=== PATIENT | male | born 1970 | race Caucasian/White ===

== ENCOUNTER 2016-10-13 08:13 | Emergency (ER) | payer SELFPAY ==
[~2016-10-13] VITALS: Wt 75.0 kg
[~2016-10-13 08:13] MED LIST: ACET500T98 PO
[2016-10-13] MEDS ORDERED: BEN25 PO (08:32)
[2016-10-13] MEDS ORDERED: HC30CR25 TOP (08:33)
[2016-10-13] MEDS ORDERED: METHYLPREDNISOLONE 125 MG INJ IM ONE (09:00)
--- NOTE | 2016-10-13 09:02 | ERD ---
ER Documentation Chief Complaint Date/Time DATE: 10/13/16 TIME: 08:59 Chief Complaint allergic reaction with facial swelling and rash. no sob or stridor HPI Patient is a 46-year-old male who presents to the ED with bilateral arm itchiness and facial itchiness and slight swelling since yesterday. He states that he had 3 "blood pork tacos." And developed itchiness and swelling soon afterwards. He states that the itchiness has gone and the swelling has decreased but he states that he still has swelling on his face. He denies fever , chills. Denies shortness of breath, stridor, difficulty breathing, difficulty speaking. Denies chest pain, shortness of breath. Denies tongue swelling or lip swelling. Denies headache, dizziness, blurry vision, neck pain or stiffness. Denies abdominal pain. No other complaints. Has not taken any medication for his symptoms. ROS All systems reviewed and are negative except as per history of present illness. Medications Home Meds Active Scripts Hydrocortisone* Topical (Hydrocortisone* Topical) 2.5%-28.3 Gm Cream..g., 1 APPLIC TOP BID, #1 TUB Prov:DARION MILLER PA-C 10/13/16 Diphenhydramine Hcl* (Benadryl*) 25 Mg Cap, 25 MG PO Q6, #30 CAP Prov:DARION MILLER PA-C 10/13/16 Acetaminophen (Tylenol) 500 Mg Tab, 500 MG PO Q8, #10 TAB Prov:REGINA BRICEÑO NP 08/21/15 Allergies Allergies: Coded Allergies: No Known Allergy (Unverified , 10/13/16) PMhx/Soc Medical and Surgical Hx: pt denies Medical Hx, pt denies Surgical Hx History of Surgery: No Anesthesia Reaction: No Hx Neurological Disorder: No Hx Respiratory Disorders: No Hx Cardiac Disorders: No Hx Psychiatric Problems: No Hx Miscellaneous Medical Probl: No Hx Alcohol Use: Yes (3 beers per day) Hx Substance Use: No Hx Tobacco Use: No Smoking Status: Never smoker Physical Exam Vitals Vital Signs Date Time Temp Pulse Resp B/P Pulse Ox O2 Delivery O2 Flow Rate FiO2 10/13/16 08:17 98.5 92 21 130/75 98 Physical Exam GENERAL: Well-developed, well-nourished male. Appears in no acute distress. HEAD: Normocephalic, atraumatic. Slight bilateral face swelling, no induration , no fluctuance, no warmth, no erythema no streaking EYES: Pupils are equally reactive bilaterally. EOMs grossly intact. No conjunctival erythema. ENT: Moist mucous membranes. No uvula deviation. No kissing tonsils. No exudates. No tongue swelling, no angioedema NECK: Supple. No lymphadenopathy or thyromegaly. No meningismus. negative kernig. negative brudinski. LUNG: Clear to auscultation bilaterally. No rhonchi, wheezing, rales or coarse breath sounds. No stridor, speaking in full sentences HEART: Regular rate and rhythm. No murmurs, rubs or gallops. NEUROLOGIC: Alert and oriented. Moving all four extremities. 5/5 strength in all extremities. Normal speech. Steady gait. SKIN: Normal color. Warm and dry. No rashes or lesions. Capillary refill < 2 seconds Results 24 hrs Current Medications Medications (Trade) Dose Ordered Sig/Ronak Route PRN Reason Start Time Stop Time Status Last Admin Dose Admin Methylprednisolone Sodium Succinate (Solu-Medrol) 125 mg ONCE ONCE IM 10/13/16 09:00 10/13/16 09:01 10/13/16 08:46 Procedures/MDM ER COURSE: I kept the patient and/or family informed of laboratory and diagnostic imaging results throughout the emergency room course. MEDICATIONS: 125 mg Solu-Medrol IM. Tolerated medication well with no adverse reaction. MEDICAL DECISION MAKING: This is a 46-year-old male who presents with rash. Vital signs were reviewed. Patient is afebrile. Patient is not hypoxic. Patient is not toxic or ill- appearing. Patient has likely allergic reaction. Patient does not show signs of angioedema, tongue swelling, shortness of breath or stridor. Patient is speaking in full sentences and does not show signs of respiratory distress. Low suspicion for necrotizing fasciitis, SJS, toxic epidermal necrolysis, Kawasaki, erythema multiforme, gangrene, scarlet fever, meningococcemia, sepsis , anaphylaxis, sepsis, deep space infection, or foreign body. Low suspicion for pneumonia, PE, pneumothorax, ACS, epiglottitis, obstruction, TB, pertussis, meningitis, sepsis, anaphylaxis, angioedema. DISCHARGE: At this time, patient is stable for discharge and outpatient management with no new complaints during the ER course. Patient was sent home with Benadryl and hydrocortisone cream and a note for work.. Patient will be discharged home with instructions to recheck for new or worsening symptoms such as fever, nausea, weakness, LOC and to follow up with primary care in the next 1-2 days. Patient was advised to return to the ER for any new or worsening symptoms. Plan was discussed and patient and/or family understands and agrees. Home instructions were given. Departure Diagnosis: Primary Impression: Allergic reaction Encounter type: initial encounter Qualified Code: T78.40XA - Allergic reaction, initial encounter Condition: Stable Patient Instructions: Allergic Reaction, Other (Local) Additional Instructions: Llame al doctor MAANA y estuardo ramón GISELE PARA DENTRO DE 1-2 LINN.Dgale a la secretaria que nosotros le instruimos hacer esta gisele.Avise o llame si medel condicin se empeora antes de la gisele. Regresa aqui si peor o no mejor. DARION MILLER PA-C Oct 13, 2016 09:02
== END 2016-10-13 09:13 | disposition home or self-care (01) ==
LOC: FTE 08:13
DX: T78.1XXA Other adverse food reactions, not elsewhere classified, initial encounter (principal)
CPT/HCPCS: 96372; 99284; J2930